=== PATIENT | female | born 1970 | race Caucasian/White ===

== ENCOUNTER 2019-01-25 17:05 | Inpatient (IN) | payer MEDICAID ==
[~2019-01-25] VITALS: Ht 177.8 cm; Wt 90.7 kg
[2019-01-25 17:14] VITALS: BP_SYST 130
[2019-01-25 17:48] LABS: CALCIUM 8.3 mg/dL (8.4-11.0); CREATININE 0.9 mg/dL (0.55-1.30); HEMATOCRIT 35.3 % (36-48); HEMOGLOBIN 11.3 g/dL (12.0-16.0); LYMPHOCYTES % (AUTO) 37.1 % (20.5-51.5); MEAN CORPUSCULAR HEMOGLOBIN 27 pg (27-31); MEAN CORPUSCULAR HGB CONC 32 % (32-36); MEAN CORPUSCULAR VOLUME 86 fL (79.0-98.0); NEUTROPHILS % (AUTO) 54.3 % (40.0-70.0); PLATELET COUNT (AUTO) 143 K/uL (130-430); POTASSIUM 3.6 mmol/L (3.5-5.1); RED BLOOD CELL COUNT(AUTO) 4.11 MIL/uL (4.2-6.2); RED CELL DISTRIBUTION WIDTH 14.4 % (9.0-15.0); WHITE BLOOD COUNT (AUTO) 6.2 K/uL (4.8-10.8)
[2019-01-25 17:49] LABS: BASOPHILS % (AUTO) 0.6 % (0.0-2.0); EOSINOPHILS # (AUTO) 0.1 K/uL (0.0-0.4); EOSINOPHILS % (AUTO) 1.7 % (0.0-4.0); LYMPHOCYTES # (AUTO) 2.3 K/uL (1.0-5.5); MONOCYTES # (AUTO) 0.4 K/uL (0.0-1.0); MONOCYTES % (AUTO) 6.4 % (1.7-9.3); NEUTROPHILS # (AUTO) 3.4 K/uL (1.8-7.7)
[2019-01-25 17:56] LABS: ALBUMIN 3.3 g/dL (3.4-4.8); TOTAL BILIRUBIN 0.4 mg/dL (0.0-1.0)
[2019-01-25 18:26] LABS: BILIRUBIN,URINE NEGATIVE (NEGATIVE); BLOOD, URINE TRACE (NEGATIVE); CLARITY/URINE CLEAR (CLEAR); COLOR,URINE YELLOW (YELLOW); GLUCOSE,URINE NEGATIVE (NEGATIVE); KETONES,URINE NEGATIVE (NEGATIVE); LEUKOCYTE ESTERASE ,URINE TRACE (NEGATIVE); NITRITE, URINE NEGATIVE (NEGATIVE); PH,URINE 5.5 (5.0-8.0); PROTEIN URINE NEGATIVE (NEGATIVE); UROBILINOGEN,URINE 0.2 (0.2-1.0)
[2019-01-25 18:31] LABS: BACTERIA,URINE FEW /HPF (None Seen); RBC,URINE 0-3 /HPF (0-3)
[2019-01-25] MEDS ORDERED: IOHEXOL 350 mgI/mL, 150 ML INFUS..BTL IV ONE (18:38)
[2019-01-25] MEDS ORDERED: ALPR1TAB2 PO (20:05)
[2019-01-25] MEDS ORDERED: REM15 PO (20:05)
[2019-01-25 20:24] VITALS: BP_SYST 128
[2019-01-25] MEDS ORDERED: ONDANSETRON HCL 4 MG/2 ML VIAL IVP PRN (22:15)
[2019-01-25] MEDS ORDERED: HYDROcodone/ACETAMIN 10-325 MG TAB PO PRN (22:15)
[2019-01-25] MEDS ORDERED: ACETAMINOPHEN 325 MG TABLET PO PRN (22:15)
[2019-01-25] MEDS ORDERED: LORazepam 2 MG/ML VIAL IVP PRN (22:15)
[2019-01-25] MEDS ORDERED: IPRATROPIUM/ALBUTEROL SULFATE 3 ML AMPUL.NEB (DUONEB) INH PRN (23:15)
[2019-01-25] MEDS ORDERED: MIRTAZAPINE 15 MG TABLET PO ONE (23:15)
[2019-01-25] MEDS ORDERED: ALPRAZolam 0.25 MG TABLET PO ONE (23:15)
[2019-01-25 23:35] VITALS: BP_SYST 128
[2019-01-26 01:12] VITALS: BP_SYST 124
[2019-01-26] MEDS: NORMAL SALINE 5 ML DISP.SYRIN IVF SCH ×6 (06:00→22:29)
[2019-01-26 06:39] LABS: ALBUMIN 3.2 g/dL (3.4-4.8); CALCIUM 8.6 mg/dL (8.4-11.0); CREATININE 0.79 mg/dL (0.55-1.30); PHOSPHORUS 4.1 mg/dL (2.7-4.5); POTASSIUM 3.8 mmol/L (3.5-5.1); TOTAL BILIRUBIN 0.6 mg/dL (0.0-1.0)
[2019-01-26 07:37] LABS: BASOPHILS % (AUTO) 0.6 % (0.0-2.0); EOSINOPHILS % (AUTO) 1.4 % (0.0-4.0); HEMATOCRIT 32.5 % (36-48); HEMOGLOBIN 10.5 g/dL (12.0-16.0); LYMPHOCYTES # (AUTO) 2.4 K/uL (1.0-5.5); LYMPHOCYTES % (AUTO) 36.1 % (20.5-51.5); MEAN CORPUSCULAR HEMOGLOBIN 28 pg (27-31); MEAN CORPUSCULAR HGB CONC 32 % (32-36); MEAN CORPUSCULAR VOLUME 85 fL (79.0-98.0); MONOCYTES % (AUTO) 6.6 % (1.7-9.3); NEUTROPHILS # (AUTO) 3.7 K/uL (1.8-7.7); NEUTROPHILS % (AUTO) 55.3 % (40.0-70.0); PLATELET COUNT (AUTO) 136 K/uL (130-430); RED CELL DISTRIBUTION WIDTH 14.4 % (9.0-15.0); WHITE BLOOD COUNT (AUTO) 6.7 K/uL (4.8-10.8)
[2019-01-26 07:38] LABS: EOSINOPHILS # (AUTO) 0.1 K/uL (0.0-0.4); MONOCYTES # (AUTO) 0.4 K/uL (0.0-1.0)
[2019-01-26] MEDS ORDERED: FUROSEMIDE 20 MG/2 ML VIAL IVP SCH (09:00)
[2019-01-26 09:40] VITALS: BP_SYST 135
[2019-01-26 11:29] VITALS: BP_SYST 124
[2019-01-26 16:31] VITALS: BP_SYST 106
[2019-01-26] MEDS: POTASSIUM CHLORIDE 20 MEQ/PKT PACKET PO SCH (18:07)
[2019-01-26] MEDS: FUROSEMIDE 20 MG/2 ML VIAL IVP SCH (18:08)
[2019-01-26 20:43] VITALS: BP_SYST 108
[2019-01-26] MEDS: MIRTAZAPINE 15 MG TABLET PO SCH (22:28)
[2019-01-26] MEDS: ALPRAZolam 0.25 MG TABLET PO SCH (22:28)
[2019-01-27] MEDS ORDERED: CARVEDILOL 6.25 MG TABLET (COREG) PO ONE (00:30)
[2019-01-27] MEDS ORDERED: DILTIAZEM HCL 25 MG/5 ML VIAL IVP PRN (00:30)
[2019-01-27] MEDS ORDERED: DILTIAZEM HCL 25 MG/5 ML VIAL ONE (00:46)
[2019-01-27] MEDS: HYDROcodone/ACETAMIN 5-325 MG TAB (NORCO/ VICODIN) PO PRN (03:25)
[2019-01-27] MEDS: NORMAL SALINE 5 ML DISP.SYRIN IVF SCH ×6 (06:00→21:01)
[2019-01-27] MEDS: POTASSIUM CHLORIDE 20 MEQ/PKT PACKET PO SCH ×2 (06:15→17:53)
[2019-01-27] MEDS: FUROSEMIDE 20 MG/2 ML VIAL IVP SCH ×2 (06:17→17:54)
[2019-01-27 07:44] LABS: C-REACTIVE PROTEIN QUANT 1.6 mg/dL (0-0.5); CALCIUM 8.5 mg/dL (8.4-11.0); CREATININE 0.69 mg/dL (0.55-1.30); POTASSIUM 3.8 mmol/L (3.5-5.1); THYROID STIMULATING HORMONE 0.8 uIu/mL (0.34-4.82)
[2019-01-27 09:12] LABS: BASOPHILS % (AUTO) 0.5 % (0.0-2.0); EOSINOPHILS # (AUTO) 0.1 K/uL (0.0-0.4); EOSINOPHILS % (AUTO) 1.9 % (0.0-4.0); HEMATOCRIT 32.3 % (36-48); HEMOGLOBIN 10.5 g/dL (12.0-16.0); LYMPHOCYTES # (AUTO) 2.4 K/uL (1.0-5.5); LYMPHOCYTES % (AUTO) 34.2 % (20.5-51.5); MEAN CORPUSCULAR HEMOGLOBIN 27 pg (27-31); MEAN CORPUSCULAR HGB CONC 33 % (32-36); MEAN CORPUSCULAR VOLUME 84 fL (79.0-98.0); MONOCYTES # (AUTO) 0.5 K/uL (0.0-1.0); MONOCYTES % (AUTO) 7.8 % (1.7-9.3); NEUTROPHILS # (AUTO) 3.9 K/uL (1.8-7.7); NEUTROPHILS % (AUTO) 55.6 % (40.0-70.0); PLATELET COUNT (AUTO) 143 K/uL (130-430); RED BLOOD CELL COUNT(AUTO) 3.84 MIL/uL (4.2-6.2); RED CELL DISTRIBUTION WIDTH 14.2 % (9.0-15.0)
[2019-01-27 10:00] VITALS: BP_SYST 90
[2019-01-27 10:00] LABS: ERYTHROCYTE SEDIMENTATION RATE 19 MM/HR (0-20)
[2019-01-27] MEDS: CARVEDILOL 6.25 MG TABLET (COREG) PO SCH ×2 (10:36→17:53)
[2019-01-27 12:10] VITALS: BP_SYST 134
[2019-01-27 15:07] VITALS: BP_SYST 105
[2019-01-27 20:50] VITALS: BP_SYST 100
[2019-01-27] MEDS: MIRTAZAPINE 15 MG TABLET PO SCH (20:54)
[2019-01-27] MEDS: ALPRAZolam 0.25 MG TABLET PO SCH (20:54)
[2019-01-28] MEDS: LEVOFLOXACIN 500 MG TABLET PO SCH ×2 (01:23→21:47)
[2019-01-28 05:01] VITALS: BP_SYST 126
[2019-01-28] MEDS: NORMAL SALINE 5 ML DISP.SYRIN IVF SCH ×6 (05:20→21:53)
[2019-01-28] MEDS: POTASSIUM CHLORIDE 20 MEQ/PKT PACKET PO SCH ×2 (05:20→17:25)
[2019-01-28] MEDS: FUROSEMIDE 20 MG/2 ML VIAL IVP SCH ×2 (05:25→17:17)
[2019-01-28 07:41] LABS: CALCIUM 9.4 mg/dL (8.4-11.0); CREATININE 0.88 mg/dL (0.55-1.30); POTASSIUM 3.8 mmol/L (3.5-5.1)
[2019-01-28 08:01] VITALS: BP_SYST 107
[2019-01-28] MEDS: CARVEDILOL 6.25 MG TABLET (COREG) PO SCH ×2 (08:43→17:16)
[2019-01-28] MEDS: HYDROcodone/ACETAMIN 5-325 MG TAB (NORCO/ VICODIN) PO PRN (08:43)
[2019-01-28 09:00] LABS: RED BLOOD CELL COUNT(AUTO) 4.61 MIL/uL (4.2-6.2); WHITE BLOOD COUNT (AUTO) 8.3 K/uL (4.8-10.8)
[2019-01-28 09:01] LABS: HEMATOCRIT 39.3 % (36-48); HEMOGLOBIN 12.5 g/dL (12.0-16.0); MEAN CORPUSCULAR HEMOGLOBIN 27 pg (27-31); MEAN CORPUSCULAR HGB CONC 32 % (32-36); MEAN CORPUSCULAR VOLUME 85 fL (79.0-98.0); PLATELET COUNT (AUTO) 180 K/uL (130-430); RED CELL DISTRIBUTION WIDTH 13.9 % (9.0-15.0)
[2019-01-28 09:02] LABS: BASOPHILS % (AUTO) 0.6 % (0.0-2.0); EOSINOPHILS # (AUTO) 0.3 K/uL (0.0-0.4); EOSINOPHILS % (AUTO) 3.1 % (0.0-4.0); LYMPHOCYTES # (AUTO) 2.9 K/uL (1.0-5.5); LYMPHOCYTES % (AUTO) 35.3 % (20.5-51.5); MONOCYTES # (AUTO) 0.6 K/uL (0.0-1.0); MONOCYTES % (AUTO) 7.5 % (1.7-9.3); NEUTROPHILS # (AUTO) 4.5 K/uL (1.8-7.7); NEUTROPHILS % (AUTO) 53.5 % (40.0-70.0)
[2019-01-28 12:45] VITALS: BP_SYST 110
[2019-01-28 15:43] VITALS: BP_SYST 104
[2019-01-28 21:44] VITALS: BP_SYST 94
[2019-01-28] MEDS: MIRTAZAPINE 15 MG TABLET PO SCH (21:48)
[2019-01-28] MEDS: ALPRAZolam 0.25 MG TABLET PO SCH (21:48)
[2019-01-29 01:44] VITALS: BP_SYST 103
[2019-01-29] MEDS: POTASSIUM CHLORIDE 20 MEQ/PKT PACKET PO SCH ×2 (05:19→18:21)
[2019-01-29] MEDS: NORMAL SALINE 5 ML DISP.SYRIN IVF SCH ×4 (05:21→14:10)
[2019-01-29] MEDS: FUROSEMIDE 20 MG/2 ML VIAL IVP SCH ×2 (05:21→18:25)
[2019-01-29 07:19] LABS: CALCIUM 9.1 mg/dL (8.4-11.0); CREATININE 0.89 mg/dL (0.55-1.30); POTASSIUM 4.2 mmol/L (3.5-5.1)
[2019-01-29 07:28] LABS: ALBUMIN 3.2 g/dL (3.4-4.8); TOTAL BILIRUBIN 0.3 mg/dL (0.0-1.0)
[2019-01-29 08:00] VITALS: BP_SYST 103
[2019-01-29 08:15] LABS: HEMATOCRIT 39.8 % (36-48); HEMOGLOBIN 12.8 g/dL (12.0-16.0); MEAN CORPUSCULAR HEMOGLOBIN 27 pg (27-31); MEAN CORPUSCULAR VOLUME 85 fL (79.0-98.0); RED BLOOD CELL COUNT(AUTO) 4.69 MIL/uL (4.2-6.2); WHITE BLOOD COUNT (AUTO) 10.7 K/uL (4.8-10.8)
[2019-01-29 08:16] LABS: BASOPHILS % (AUTO) 0.4 % (0.0-2.0); EOSINOPHILS # (AUTO) 0.3 K/uL (0.0-0.4); EOSINOPHILS % (AUTO) 2.3 % (0.0-4.0); LYMPHOCYTES # (AUTO) 3.3 K/uL (1.0-5.5); LYMPHOCYTES % (AUTO) 30.9 % (20.5-51.5); MEAN CORPUSCULAR HGB CONC 32 % (32-36); MONOCYTES % (AUTO) 9.1 % (1.7-9.3); NEUTROPHILS # (AUTO) 6.1 K/uL (1.8-7.7); NEUTROPHILS % (AUTO) 57.3 % (40.0-70.0); PLATELET COUNT (AUTO) 194 K/uL (130-430); RED CELL DISTRIBUTION WIDTH 13.8 % (9.0-15.0)
[2019-01-29] MEDS: CARVEDILOL 6.25 MG TABLET (COREG) PO SCH ×2 (08:40→18:25)
[2019-01-29 12:18] VITALS: BP_SYST 96
[2019-01-29 16:55] VITALS: BP_SYST 110
[2019-01-29 20:02] VITALS: BP_SYST 112
[2019-01-29] MEDS ORDERED: CARV6.2554 PO (20:21)
[2019-01-29] MEDS ORDERED: POTA20TA83 PO (20:22)
[2019-01-29] MEDS ORDERED: FURO-149 PO (20:22)
[2019-01-29] MEDS ORDERED: IPRA3AMP9 INH (20:24)
== END 2019-01-29 20:35 | disposition home or self-care (01) | DRG 139 ==
LOC: SED 17:05 → STU 20:03
PROVIDERS: ADMIT Preventive Medicine Preventive Medicine/Occupational Environmental Medicine; ATTEND Preventive Medicine Preventive Medicine/Occupational Environmental Medicine
DX: J18.1 Lobar pneumonia, unspecified organism (principal); J96.00 Acute respiratory failure, unspecified whether with hypoxia or hypercapnia; I50.23 Acute on chronic systolic (congestive) heart failure; J91.8 Pleural effusion in other conditions classified elsewhere; E83.51 Hypocalcemia; I42.0 Dilated cardiomyopathy; I08.1 Rheumatic disorders of both mitral and tricuspid valves; E88.09 Other disorders of plasma-protein metabolism, not elsewhere classified; I11.0 Hypertensive heart disease with heart failure; K74.60 Unspecified cirrhosis of liver; D64.9 Anemia, unspecified; G47.00 Insomnia, unspecified; F41.9 Anxiety disorder, unspecified; F32.9 Major depressive disorder, single episode, unspecified; N39.0 Urinary tract infection, site not specified; K08.9 Disorder of teeth and supporting structures, unspecified; Z88.2 Allergy status to sulfonamides; Z79.899 Other long term (current) drug therapy; Z87.891 Personal history of nicotine dependence; Z88.8 Allergy status to other drugs, medicaments and biological substances; Z82.49 Family history of ischemic heart disease and other diseases of the circulatory system
CPT/HCPCS: 36415; 71045; 71275; 80048; 80053; 81000-TC; 81025; 83735-TC; 83880; 84100-TC; 84443-TC; 84484; 85025; 85379; 85651-TC; 86140; 93005; 93306; 94640; 94760; 99285; G0378; J1940; J2060; J3490; J7620; Q9967